=== PATIENT | female | born 1980 | race Caucasian/White ===

== ENCOUNTER 2017-08-30 19:13 | Observation (INO) | payer OTHER ==
[2017-08-30] MEDS ORDERED: DEMEROL INJ IVP PRN (19:30)
[2017-08-30] MEDS ORDERED: ZOFRAN INJ 4 MG VIAL IVP PRN (22:32)
[2017-08-30 22:50] LABS: AMYLASE 45 Units/L (25-115); LIPASE 318 Units/L (73-393)
[2017-08-30 23:03] VITALS: BMI 33.9
[2017-08-30 23:28] LABS: BILIRUBIN,URINE NEGATIVE (NEGATIVE); BLOOD/HEMOGLOBIN,URINE NEGATIVE (NEGATIVE); GLUCOSE, URINE NEGATIVE (NEGATIVE); KETONES,URINE NEGATIVE (NEGATIVE); LEUKOCYTE ESTERASE ,URINE NEGATIVE (NEGATIVE); NITRITES,URINE NEGATIVE (NEGATIVE); PH,URINE 6.5 (5.0 - 8.0); PROTEIN,URINE NEGATIVE (NEGATIVE); UROBILINOGEN,URINE NORMAL (NORMAL)
[2017-08-30 23:34] LABS: APPEARANCE,URINE CLEAR (CLEAR); COLOR,URINE YELLOW (YELLOW)
[2017-08-30 23:35] LABS: BACTERIA,URINE NEGATIVE /HPF (NEGATIVE); RBC,URINE 0-3 /HPF (NEGATIVE); SQUAMOUS EPITHELIAL CELL,UR RARE /HPF (NEGATIVE)
[2017-08-30] MEDS: NS 1000 ML 1,000 ML IV SCH (23:36)
[2017-08-31] MEDS: DEMEROL INJ IVP PRN ×2 (03:36→11:20)
[2017-08-31 06:14] LABS: BASOPHILS % (AUTO) 0.3 % (0.2-1.0); EOSINOPHILS # (AUTO) 0.2 x10^3/uL (0.0-0.2); EOSINOPHILS % (AUTO) 1.5 % (0.9-2.9); HEMATOCRIT 35.7 % (36.0-47.0); HEMOGLOBIN 12.1 g/dL (12.0-16.0); LYMPHOCYTES % (AUTO) 25.1 % (21.0-51.0); MEAN CORPUSCULAR HEMOGLOBIN 26.3 pg (27.0-34.0); MEAN CORPUSCULAR VOLUME 77.2 fL (80.0-100.0); MEAN PLATELET VOLUME 9.1 fL (7.4-11.0); MONOCYTES # (AUTO) 1.1 x10^3/uL (0.3-0.8); NEUTROPHILS # (AUTO) 7.6 x10^3/uL (2.2-4.8); NEUTROPHILS % (AUTO) 64.1 % (42.0-75.0); PLATELET COUNT 327 X10^3/uL (150.0-450.0); RED BLOOD COUNT 4.62 X10^6/uL (3.5-5.4); RED CELL DISTRIBUTION WIDTH 13.6 % (11.6-16.5); WHITE BLOOD COUNT 11.9 X10^3/uL (3.6-10.0)
[2017-08-31 06:31] LABS: ALANINE AMINOTRANSFERASE 29 Units/L (12-78); ALBUMIN 3.2 g/dL (3.4-5.0); ALKALINE PHOSPHATASE 130 Units/L (46-116); ASPARTATE AMINO TRANSFERASE 23 Units/L (15-37); BLOOD UREA NITROGEN 13 mg/dL (7-18); CALCIUM 8.5 mg/dL (8.5-10.1); CARBON DIOXIDE 23.5 mmol/L (21-32); CHLORIDE 106 mmol/L (98-107); COR CA(FOR HYPOALB) 9.1 mg/dL (8.5-10.1); CREATININE 1.04 mg/dL (0.55-1.02); SODIUM 140 mmol/L (136-145); TOTAL PROTEIN 7.3 g/dL (6.4-8.2); eGFR BLACK RACES > 60 (>60); eGFR NON BLACK RACES > 60 (>60)
--- NOTE | 2017-08-31 09:53 | DR.UPDATE ---
H&P Update History and Physical Update: WAS SEEN IN THE OFFICE ON 08/30/17. A H&P WAS COMPLETED PRIOR TO ADMISSION. PATIENT HAS BEEN SEEN AND EXAMINED WITH NO CHANGES NOTED TO H&P. Changes noted: NO Yes with the following:
[2017-08-31] MEDS: NS 1000 ML 1,000 ML IV SCH (11:40)
[2017-08-31] MEDS ORDERED: NS 100 ML IV 100 ML IV ONE (11:58)
--- NOTE | 2017-08-31 12:46 | CT ---
CT abdomen and pelvis with and without contrast Indication: Right lower quadrant and right upper quadrant pain Technique: Helical CT images of the abdomen and pelvis were obtained with and without IV contrast. Re formatted images in the coronal and sagittal planes were also generated for review. Comparison: None Findings: Lung bases are clear. No aggressive osseous lesions are identified. Noncontrast images demonstrate a punctate nonobstructing stone within the upper left kidney (axial im age 34, series 3). No additional radiopaque urinary tract stones are identified and both kidneys enha nce symmetrically without evidence of obstruction. The liver, gallbladder, spleen, pancreas and adrenals are unremarkable. There is no bowel inflammatio n or obstruction. The appendix is normal. The IVC, abdominal aorta and urinary bladder are unremarkab le. The uterus is surgically absent. No free air, free fluid or lymphadenopathy is identified. Impression: No acute abnormality to explain patient's symptoms. Normal appendix. Punctate nonobstructing stone within the upper left kidney. Reported By:
--- NOTE | 2017-08-31 17:17 | US ---
HISTORY: Right upper quadrant pain Study: Right upper quadrant abdominal ultrasound Comparison: CT same day Technique: Multiple fuentes scale and color flow Doppler images of the right upper quadrant were obtaine d. Findings: The liver is normal in echotexture and size. No focal intraparenchymal mass or intrahepatic biliary ductal dilatation is observed. No evidence of gallstones. The common bile duct measures 3.3 mm. No pericholecystic fluid or gallbladder wall thickening. No sonographic Reid's sign reported. The right kidney appears normal in size without focal parenchymal mass or nephrolithiasis. The right kidney measures 4.7 x 4.9 x 10.3 cm. No evidence of hydronephrosis. The visualized portions of the pancreas are unremarkable. IMPRESSION: 1. Negative right upper quadrant ultrasound. Reported By:
[2017-08-31] MEDS ORDERED: PHENERGAN INJ 25 MG IV PRN (18:23)
[2017-08-31] MEDS: PILOCARPINE HCL PO SCH (21:38)
[2017-09-01] MEDS: NS 1000 ML 1,000 ML IV SCH ×2 (01:02→13:03)
[2017-09-01 05:23] LABS: BASOPHILS % (AUTO) 0.3 % (0.2-1.0); EOSINOPHILS # (AUTO) 0.1 x10^3/uL (0.0-0.2); EOSINOPHILS % (AUTO) 1.2 % (0.9-2.9); HEMATOCRIT 37.4 % (36.0-47.0); HEMOGLOBIN 12.5 g/dL (12.0-16.0); LYMPHOCYTES # (AUTO) 2.5 X10^3/uL (1.3-2.9); LYMPHOCYTES % (AUTO) 26.5 % (21.0-51.0); MEAN CORPUSCULAR HEMOGLOBIN 26.3 pg (27.0-34.0); MEAN CORPUSCULAR HGB CONC 33.5 g/dL (33.0-35.0); MEAN CORPUSCULAR VOLUME 78.4 fL (80.0-100.0); MEAN PLATELET VOLUME 8.8 fL (7.4-11.0); MONOCYTES # (AUTO) 1.1 x10^3/uL (0.3-0.8); MONOCYTES % (AUTO) 11.1 % (0.0-13.0); NEUTROPHILS # (AUTO) 5.8 x10^3/uL (2.2-4.8); NEUTROPHILS % (AUTO) 60.9 % (42.0-75.0); PLATELET COUNT 323 X10^3/uL (150.0-450.0); RED BLOOD COUNT 4.77 X10^6/uL (3.5-5.4); RED CELL DISTRIBUTION WIDTH 13.4 % (11.6-16.5); WHITE BLOOD COUNT 9.6 X10^3/uL (3.6-10.0)
[2017-09-01 05:42] LABS: ALANINE AMINOTRANSFERASE 27 Units/L (12-78); ALBUMIN 3.1 g/dL (3.4-5.0); ALKALINE PHOSPHATASE 133 Units/L (46-116); ASPARTATE AMINO TRANSFERASE 17 Units/L (15-37); BLOOD UREA NITROGEN 12 mg/dL (7-18); CALCIUM 8.6 mg/dL (8.5-10.1); CARBON DIOXIDE 25.9 mmol/L (21-32); CHLORIDE 107 mmol/L (98-107); COR CA(FOR HYPOALB) 9.3 mg/dL (8.5-10.1); CREATININE 1.01 mg/dL (0.55-1.02); SODIUM 141 mmol/L (136-145); TOTAL PROTEIN 7.4 g/dL (6.4-8.2); eGFR BLACK RACES > 60 (>60); eGFR NON BLACK RACES > 60 (>60)
[2017-09-01] MEDS: PLAQUENIL PO SCH ×2 (08:34→08:38)
[2017-09-01] MEDS: PILOCARPINE HCL PO SCH ×2 (08:35→12:02)
[2017-09-01] MEDS ORDERED: PATIENT'S HOME MEDICATION (Dexlansoprazole [Dexilant] 1 CAP) PO SCH (09:00)
[2017-09-01] MEDS ORDERED: SINGULAIR TAB 10 MG PO SCH (09:00)
[2017-09-01 12:19] VITALS: BP 116/70
== END 2017-09-01 14:10 | disposition home or self-care (01) ==
LOC: MED/SURG 19:13 → UNDOADMOB 19:13 → MED/SURG 22:15
PROVIDERS: ADMIT Internal Medicine; ATTEND Internal Medicine
DX: K21.9 Gastro-esophageal reflux disease without esophagitis (principal); R10.11 Right upper quadrant pain; R14.0 Abdominal distension (gaseous); R07.81 Pleurodynia; N20.0 Calculus of kidney
CPT/HCPCS: 36415; 74178; 76705; 80053; 81001; 82150; 83690; 85025; A4216; A4222; G0378; J2175; J2405; J2550

== ENCOUNTER → 2017-08-30 | Outpatient (CLI) | payer OTHER ==
[2017-08-30 16:24] LABS: BASOPHILS # (AUTO) 0.1 X10^3/uL (0.0-0.1); BASOPHILS % (AUTO) 0.7 % (0.2-1.0); EOSINOPHILS # (AUTO) 0.2 x10^3/uL (0.0-0.2); EOSINOPHILS % (AUTO) 1.6 % (0.9-2.9); HEMATOCRIT 40.1 % (36.0-47.0); HEMOGLOBIN 13.6 g/dL (12.0-16.0); LYMPHOCYTES # (AUTO) 2.7 X10^3/uL (1.3-2.9); LYMPHOCYTES % (AUTO) 22.5 % (21.0-51.0); MEAN CORPUSCULAR HEMOGLOBIN 26.3 pg (27.0-34.0); MEAN CORPUSCULAR HGB CONC 33.9 g/dL (33.0-35.0); MEAN CORPUSCULAR VOLUME 77.3 fL (80.0-100.0); MEAN PLATELET VOLUME 8.3 fL (7.4-11.0); MONOCYTES # (AUTO) 0.9 x10^3/uL (0.3-0.8); MONOCYTES % (AUTO) 7.5 % (0.0-13.0); NEUTROPHILS % (AUTO) 67.7 % (42.0-75.0); PLATELET COUNT 379 X10^3/uL (150.0-450.0); RED BLOOD COUNT 5.19 X10^6/uL (3.5-5.4); RED CELL DISTRIBUTION WIDTH 13.7 % (11.6-16.5); WHITE BLOOD COUNT 11.9 X10^3/uL (3.6-10.0)
[2017-08-30 16:36] LABS: ALANINE AMINOTRANSFERASE 38 Units/L (12-78); ALBUMIN 3.7 g/dL (3.4-5.0); ALKALINE PHOSPHATASE 158 Units/L (46-116); ASPARTATE AMINO TRANSFERASE 28 Units/L (15-37); BLOOD UREA NITROGEN 15 mg/dL (7-18); CARBON DIOXIDE 27.3 mmol/L (21-32); CHLORIDE 104 mmol/L (98-107); CREATININE 1.08 mg/dL (0.55-1.02); SODIUM 140 mmol/L (136-145); TOTAL PROTEIN 8.4 g/dL (6.4-8.2); eGFR BLACK RACES > 60 (>60); eGFR NON BLACK RACES > 60 (>60)
--- NOTE | 2017-08-30 18:38 | RAD ---
HISTORY: Right-sided rib pain, abdominal tenderness Study: Rib series Comparison: None Findings: The trachea is midline. The cardiac silhouette is unremarkable. The lungs are clear without focal i nfiltrate or effusion. The bony thorax is unremarkable. No acute cortical disruption or angulation of the bony hemithorax can be identified. No underlying p neumothorax is seen. IMPRESSION: 1. No acute cardiopulmonary disease. 2. No evidence for acute rib fracture can be identified. Reported By:
== END ==
LOC: LAB 16:10
PROVIDERS: ATTEND Internal Medicine
DX: R10.11 Right upper quadrant pain (principal); R07.81 Pleurodynia; R14.0 Abdominal distension (gaseous)
CPT/HCPCS: 36415; 71111; 80053; 85025; 86677